=== PATIENT | female | born 1980 | race Caucasian/White ===

== ENCOUNTER 2021-03-29 17:37 | Observation (INO) | payer OTHER, SELFPAY ==
--- NOTE | ~2021-03-29 | US_ITS ---
US right upper quadrant INDICATION: Right upper quadrant pain with PROCEDURE: Realtime right upper abdominal ultrasound. COMPARISON: No prior studies for comparison. FINDINGS: The pancreas is normal without focal mass or pancreatic ductal dilation. Liver echotexture is normal without focal mass or intrahepatic biliary dilatation. There is normal directional flow i n the portal vein. The gallbladder is normal without stones, gallbladder wall thickening or pericholecystic fluid. Comm on bile duct measures 4 mm. No sonographic Levy's sign. IMPRESSION: 1: Normal limited abdominal ultrasound. Reviewed, dictated and finalized at location B.
[2021-03-29 18:00] VITALS: BP 144/87; PULSE 84
[2021-03-29 18:15] VITALS: BP 133/90; PULSE 83
[2021-03-29 18:31] VITALS: BP 127/82; PULSE 78
--- NOTE | 2021-03-29 19:09 | PM.IMHP ---
H&P: HPI History of Present Illness Date/Time: 03/29/21 18:58 Zaynab is a 40yo @ 36.3wks (NAYAN 04/23/21) who presented to L&D after being discharged from [facility]. She had severe RUQ pain; stabbing at work and was taken to [facility] as that was the closest hospital. At [facility], she was found to have a severe range BP 175/105. She has had a couple other mild range BPs. PEC labs were sent at [facility] and reviewed on her Uchart. Normal urine P/C ratio of 0.135; normal platelets, liver enzymes, creatinine, uric acid and H/H. She had a mild headache but it resolved spontaneously. She was also found to be johana, but cervix was closed. No VB, LOF, vision changes, CP, or SOB. Her is complicated by: - AMA; NIPT low risk, male - Previous c/s x1; for repeat c/s - CMV non-immune - Gestational hypertension, new diagnosis on this admission Chief Complaint: elevated blood pressure at outside hospital Review of Systems Review of Systems: All systems reviewed & are unremarkable except as noted in HPI and below (HPI) [facility] Family History Family History Mother Hypertension Grandparent Family history of cardiovascular disease Social History Social History Smoking status: Never smoker Alcohol intake: current Substance use: never Spiritual care concerns: No Meds Home Medications and Allergies Home Medications Medication Instructions Recorded Confirmed Type fluticasone propionate 50 1 spray NASAL Q12H #9.9 ml 02/24/21 03/23/21 Rx mcg/actuation nasal spray,suspension PNV cmb#95-ferrous fumarate-FA 1 tablet PO DAILY 03/23/21 03/23/21 History [] aspirin 81 mg PO DAILY 03/23/21 03/23/21 History pyridoxine (vitamin B6) 100 mg PO DAILY 03/23/21 03/23/21 History Allergies Allergy/AdvReac Type Severity Reaction Status Date / Time latex Allergy Unknown Skin Verified 02/07/21 16:50 Reaction Vital Signs Vital Signs - 24 hr 03/29/21 18:00 03/29/21 18:15 03/29/21 18:31 Pulse Rate 84 83 78 Blood Pressure 144/87 H 133/90 127/82 Exam Const: General: cooperative, healthy appearing and uncomfortable (with contractions) Resp: Effort & Inspection: normal respiratory effort Cardio: Rate: regular rate : Other: FHT's: 150's/ mod suzanne/ + accels/ no decels - cat 1 TOCO; irregular ctx's Skin: General skin exam: normal color Neuro: General: oriented to person Psych: Appearance: grossly normal Affect: normal affect Attitude: cooperative Assessment and Plan Assessment and plan (1) Right upper quadrant pain: Code(s): R10.11 - Right upper quadrant pain Status: Acute (2) Gestational hypertension affecting second : Code(s): O13.9 - Gestational [-induced] hypertension without significant proteinuria, unspecified trimester Status: Acute (3) Previous section: Code(s): Z98.891 - History of uterine scar from previous surgery Status: Acute Additional Plan - Will monitor overnight on L&D - Continuous monitoring - BP monitoring q2h - RUQ US ordered for AM - Plan for discharge home tomorrow AM after US if stable overnight - Plan for ANT with NST/BPP/repeat labs Saturday or Saturday - Plan for repeat section with Dr. Staples Saturday or Saturday if all is stable
[2021-03-29 20:00] VITALS: BP 125/85; PULSE 86
[2021-03-29] MEDS: ACETAMINOPHEN 500 MG TABLET 1000 MG PO (20:40)
[2021-03-29 20:56] LABS: Add Urine Microscopic? NO; Appearance Urine Clear (Clear); Bilirubin Urine Negative (Negative); Blood Urine Negative (Negative); Color Urine Straw (Yellow); Glucose Urine UA Negative (Negative); Ketones Urine Negative (Negative); Leukocyte Esterase Ur Negative LEU/UL (NEGATIVE); Nitrate Urine Negative (Negative); Protein Urine Negative (Negative); Specific Grav Ur 1.008 (1.001-1.035); Urobilinogen Urine Negative mg/dL (<2.0)
[2021-03-29 21:00] VITALS: BP 115/72; PULSE 90
--- NOTE | 2021-03-29 22:18 | OBADM ---
This patient, Zaynab Lea, admitted to the OB room OB Post 116 for observation. Patient/family oriented to hospital policies and general routines including ID bracelet, bed and alarms, visiting hours, pain management, procedures, bathroom and other care routines, personal items, smoking policy, room service/diet, and visiting hours. Patient/Family are encouraged to report perceived risks to care and to ask questions if they do not understand what they are told or what they should do.
[2021-03-29 22:39] VITALS: BP 104/65; PULSE 82; TEMP 36.7
[2021-03-30 00:49] VITALS: RESP 20; TEMP 36.4
[2021-03-30 00:51] VITALS: BP 113/86; PULSE 46
[2021-03-30 01:00] VITALS: BP 115/63; PULSE 80
[2021-03-30 01:15] VITALS: BP 113/86; PULSE 80
[2021-03-30 04:42] VITALS: BP 125/76; PULSE 72
--- NOTE | 2021-03-30 07:14 | PM.OBPNVD ---
OB - PN: Subj Subjective Date/time seen: 03/30/21 07:13 HD#2 Zaynab reports doing well overnight. She tolerated diet. She reports he's moving good. She had contractions that woke her up around midnight; none since. She denies CP, SOB, vomiting, VB, LOF, vision changes. She had 2 episodes of RUQ pain, less severe than yesterday. She had a mild headache. She reports nausea overnight. Her BPs overnight were normal. She reports a couple episodes of her hands itching. RUQ US is still pending. OB - PN: Obj Data Labs Labs: Laboratory Results - last 24 hr 03/29/21 20:43 Urine Color Straw Urine Appearance Clear Urine pH 6.0 Ur Specific [place] 1.008 Urine Protein Negative Urine Glucose (UA) Negative Urine Ketones Negative Ur Blood (Man) Negative Urine Nitrate Negative Urine Bilirubin Negative Urine Urobilinogen Negative Ur Leukocyte Esterase Negative OB - PN A/P Assessment and Plan (1) Previous section: Code(s): Z98.891 - History of uterine scar from previous surgery Status: Acute (2) Gestational hypertension affecting second : Code(s): O13.9 - Gestational [-induced] hypertension without significant proteinuria, unspecified trimester Status: Acute (3) Right upper quadrant pain: Code(s): R10.11 - Right upper quadrant pain Status: Acute Plan Comments: - RUQ pending - Will repeat labs this AM + bile acids - BPs normal; pt asymptomatic - plan for d/c home after US if labs/BPs normal - will be for NST/BPP/labs on Saturday - Strict return precautions discussed in detail Time Spent With Patient Time: Total time spent is greater than 50% in coordination of care (as documented) at patient's floor/unit and/or counseling patient: Review of Systems Review of Systems: All systems reviewed & are unremarkable except as noted in HPI and below (HPI) Exam Const: General: cooperative, healthy appearing, comfortable and no acute distress Resp: Effort & Inspection: normal respiratory effort Auscultation: clear to auscultation bilaterally Cardio: Rate: regular rate GI: Inspection: non-distended GI Palp: No abdominal tenderness and Yes Soft to palpation Auscultation: normal bowel sounds : Other: FHT's: 130's/ mod suzanne/ + accels/ no decels - cat 1 TOCO: irregular ctx's Back/Spine/Pelvis: Back: no CVA tenderness Skin: General skin exam: normal color Neuro: General: patient oriented x3 Extrem: General: normal to inspection Psych: Appearance: grossly normal Attitude: cooperative Thought process: Normal thought process present
[2021-03-30 08:03] VITALS: BP 124/79; PULSE 77
[2021-03-30 08:12] LABS: Basophils Percent Auto 0.2 % (0.2-1.2); Eosinophils Percent Auto 0.3 % (0-4.4); Hemoglobin 12.7 g/dL (12.0-15.0); Immature Granulocyte Absolute 0.08 K/mm3 (0.00-0.031); Immature Granulocyte Percent A 0.7 % (0-0.5); Mean Corpuscular HGB Conc 33.4 g/dl (32-36); Mean Corpuscular Hemoglobin 33.2 pg (26-34); Mean Corpuscular Volume 99.5 fl (80-100); Mean Platelet Volume 10.1 fl (7.4-10.4); Monocytes Percent Auto 8.2 % (2.6-8.5); Neutrophils Absolute Auto 8.2 K/mm3 (1.3-6.7); Neutrophils Percent Auto 67.6 % (45.5-73.1); Platelet Count Result 229 k/mm3 (150-375); Red Blood Count 3.82 M/mm3 (4.2-5.4); Red Cell Distribution Width 12.9 % (11.5-14.5); White Blood Count 12.2 K/mm3 (4.5-10.0)
[2021-03-30 08:22] LABS: Lactate Dehydrogenase 424 U/L (313-618)
[2021-03-30 08:24] LABS: Alanine Aminotransferase 22 U/L (4-35); Albumin Level 3.5 g/dL (3.5-5.1); Alkaline Phosphatase 144 U/L (38-126); Anion Gap 8 mmol/L (8-16); Aspartate Amino Transferase 26 U/L (14-36); Bilirubin,Total 0.4 mg/dL (0.2-1.3); Blood Urea Nitrogen 7 mg/dL (7-17); Carbon Dioxide 20 mmol/L (22-30); Chloride 108 mmol/L (98-107); Estimated Glomerular Filt Rate > 60; Glucose 84 mg/dL (65-110); Potassium 3.8 mmol/L (3.4-5.0); Sodium 136 mmol/L (137-145); Uric Acid 4.8 mg/dL (2.5-7.5)
[2021-03-30 09:54] LABS: Creatinine Urine 57.9 mg/dL; Total Protein Urine Random 8 mg/dL; Ur Ttl Prot Creatinine Ratio 0.14 mg/mg (0-0.20)
[2021-04-06 14:37] LABS: Chenodeoxycholic Acid <0.5 umol/L (< OR = 3.9); Cholic Acid <0.5 umol/L (< OR = 2.8); Deoxycholic Acid <0.5 umol/L (< OR = 2.3); Total Bile Acids <1.5 umol/L (< OR = 8.3)
== END 2021-03-30 10:40 | disposition home or self-care (01) ==
PROVIDERS: Admitting Provider Obstetrics & Gynecology; PCP Family Medicine; Visit Provider Obstetrics & Gynecology
DX: O26.893 Other specified pregnancy related conditions, third trimester (principal); R10.11 Right upper quadrant pain; O13.3 Gestational [pregnancy-induced] hypertension without significant proteinuria, third trimester; O09.523 Supervision of elderly multigravida, third trimester; Z3A.36 36 weeks gestation of pregnancy
CPT/HCPCS: 36415; 59025; 76705; 80053; 81003; 82542; 82570; 83615; 84156; 84550; 85025; 87086; A9270; G0378; G0379

== ENCOUNTER 2021-04-01 08:45 | Outpatient (CLI) | payer OTHER, SELFPAY ==
[2021-04-01 10:07] LABS: Basophils Percent Auto 0.3 % (0.2-1.2); Eosinophils Absolute Auto 0.1 K/mm3 (0-0.3); Eosinophils Percent Auto 0.5 % (0-4.4); Hematocrit 36.9 % (37.0-47.0); Hemoglobin 12.1 g/dL (12.0-15.0); Immature Granulocyte Absolute 0.08 K/mm3 (0.00-0.031); Immature Granulocyte Percent A 0.7 % (0-0.5); Lymphocytes Absolute Auto 2.04 K/mm3 (0.9-3.2); Lymphocytes Percent Auto 18.5 % (18.3-44.2); Mean Corpuscular HGB Conc 32.8 g/dl (32-36); Mean Corpuscular Hemoglobin 32.8 pg (26-34); Mean Platelet Volume 10.4 fl (7.4-10.4); Monocytes Absolute Auto 0.8 K/mm3 (0.1-0.6); Monocytes Percent Auto 7.2 % (2.6-8.5); Neutrophils Percent Auto 72.8 % (45.5-73.1); Platelet Count Result 219 k/mm3 (150-375); Red Blood Count 3.69 M/mm3 (4.2-5.4); Red Cell Distribution Width 12.7 % (11.5-14.5)
[2021-04-01 10:10] LABS: Alanine Aminotransferase 20 U/L (4-35); Albumin Level 3.5 g/dL (3.5-5.1); Alkaline Phosphatase 137 U/L (38-126); Anion Gap 7 mmol/L (8-16); Aspartate Amino Transferase 24 U/L (14-36); Bilirubin,Total 0.4 mg/dL (0.2-1.3); Blood Urea Nitrogen 10 mg/dL (7-17); Calcium 9.2 mg/dL (8.4-10.2); Carbon Dioxide 21 mmol/L (22-30); Chloride 107 mmol/L (98-107); Estimated Glomerular Filt Rate > 60; Glucose 85 mg/dL (65-110); Potassium 3.8 mmol/L (3.4-5.0); Sodium 135 mmol/L (137-145); Uric Acid 5.1 mg/dL (2.5-7.5)
[2021-04-03 07:23] LABS: Rapid Plasma Reagin Non-Reactive (NonReactive)
== END 2021-04-01 08:46 | disposition home or self-care (01) ==
LOC: ANHOBOP 08:54
PROVIDERS: Obstetrics & Gynecology; PCP Family Medicine; Visit Provider Obstetrics & Gynecology
DX: Z01.818 Encounter for other preprocedural examination (principal)
CPT/HCPCS: 36415; 80053; 84550; 85025; 86592; 86850; 86900; 86901

== ENCOUNTER 2021-04-01 08:45 | Outpatient (RCR) | payer OTHER, SELFPAY ==
--- NOTE | ~2021-04-01 | US_ITS ---
EXAMINATION: US OB BPP wo non-stress DATE: 04/01/2021 10:02 INDICATION: -induced hypertension, third trimester TECHNIQUE: Real-time pelvic ultrasound was performed. The interpreting radiologist was not present fo r the study. COMPARISON: None. FINDINGS: There is a single living fetus in vertex presentation. The placenta is anterior. heart rate is 132 beats per minute (bpm). Biophysical profile performed by the technologist: breathing (30 sec sustained breathing in 30 minutes): 2 out of 2 movement (3 gross body movements in 30 minutes): 2 out of 2 tone (one episode of fvtfoxp-donfcjhci-gmsjbjn limb movement): 2 out of 2 Amniotic fluid pocket (2 cm): 2 out of 2 Total score: 8 out of 8 IMPRESSION: 1. Single living fetus in vertex presentation. 2. Biophysical profile 8 out of 8. Reviewed, dictated and finalized at location A.
[2021-04-01 09:50] VITALS: BP 133/82; PULSE 91
== END 2021-06-30 23:59 | disposition home or self-care (01) ==
LOC: ANHOBOP 08:45
PROVIDERS: PCP Family Medicine; Visit Provider Obstetrics & Gynecology
DX: O16.3 Unspecified maternal hypertension, third trimester (principal); Z3A.36 36 weeks gestation of pregnancy
CPT/HCPCS: 99199; 59025; 76819

== ENCOUNTER 2021-04-03 09:13 | Inpatient (IN) | payer OTHER, SELFPAY ==
[2021-04-03] VITALS (41 sets, daily range): BP systolic 98–144; BP diastolic 48–89; PULSE 66–88; RESP 16–181; TEMP 36.2–36.7; O2SAT 91–100; BMI 33.0
--- NOTE | 2021-04-03 09:13 | LDADM ---
This patient, Zaynab Lea, was admitted to Labor/Delivery/Recovery 120 on 04/03/21 at 09:13. Plans for labor, pain management and were discussed with patient. Patient/family oriented to hospital policies and general routines including ID bracelet, bed and alarms, visiting hours, pain management, procedures, bathroom and other care routines, personal items, smoking policy, room service/diet and guest tray routines, infant security routines, and visiting hours. Patient/Family are encouraged to report perceived risks to care and to ask questions if they do not understand what they are told or what they should do. See OBIX for further documentation.
[2021-04-03] MEDS: LACTATED RINGERS 1,000 ML 125 ML IV CONT ×2 (09:47→10:42)
--- NOTE | 2021-04-03 10:22 | WPDANESEPPF ---
Anes - Initial Pre Proc Eval Procedure: Operation Date: 04/03/21 12:00 Proposed Procedures p Repeat Section wtih Bilateral Tubal Sterilization - Elijah Staples MD Date/Time: 04/03/21 10:22 Surgeon: Elijah Staples MD Pre Op Diagnosis: Section Patient Data Age: 40 Gender: F Height: 1.68 m Weight: 92.7 kg Last Vital Signs Pulse 87 04/03/21 09:34 BP 123/89 04/03/21 09:34 Allergies Allergy/AdvReac Type Severity Reaction Status Date / Time latex Allergy Unknown Skin Verified 02/07/21 16:50 Reaction Home Medications Medication Instructions Recorded Confirmed Type fluticasone propionate 50 1 spray NASAL Q12H #9.9 ml 02/24/21 03/23/21 Rx mcg/actuation nasal spray,suspension PNV cmb#95-ferrous fumarate-FA 1 tablet PO DAILY 03/23/21 04/01/21 History [] aspirin 81 mg PO DAILY 03/23/21 04/01/21 History pyridoxine (vitamin B6) 100 mg PO DAILY 03/23/21 04/01/21 History Patient hx anesthesia problems: none Family hx anesthesia problems: none Results Review: All pre-operative results and documents have been reviewed as part of the pre-operative evaluation. [facility] Surgical History Surgical History (Updated 04/03/21 @ 10:23 by John Heard MD) H/O arthroscopic knee surgery H/O cervical spine surgery History of appendectomy Family History Family History Mother Hypertension Grandparent Family history of cardiovascular disease Social History Social History Smoking status: Never smoker Alcohol intake: current Substance use: never Spiritual care concerns: No Anes - Eval Final PreProcedure Day of Procedure 04/03/21 10:22 Patient weight: overweight Heart: regular rate and rhythm Lungs: clear to auscultation Airway: Mallampati scale class 1 Neurological: alert and oriented Last oral intake: >/= 8 hours ASA classification: II Emergent: no Anesthetic plan: proceed Anesthesia type and monitoring: regional spinal and standard monitoring Results Review: All pre-operative results and documents have been reviewed as part of the pre-operative evaluation. Informed Consent: The patient's anesthetic plan and its attendant risks and benefits were discussed with the patient/family/POA. Questions were solicited and answers provided to the satisfaction of the patient/family/POA.
[2021-04-03] MEDS: ceFAZolin 2 GM/D5W 50 ML 2 GM/50 ML BAG IVPB (11:29)
--- NOTE | 2021-04-03 11:31 | P.HP_ITS ---
H&P: HPI History of Present Illness Date/Time: 04/03/21 11:31 Thirty atrial 2 para 1001 at 37 weeks gestation presents for repeat delivery. Was seen at [facility] last week with hypertensive episode and all labs were otherwise normal. She is continued on bedrest and serial labs and ultrasound BP P with normal testing. We will proceed today with repeat delivery as she is 37 weeks now. Also desires permanent sterilization which we have discussed and she states good understanding and consent has been obtained. Chief Complaint: Review of Systems Review of Systems: All systems reviewed & are unremarkable except as noted in HPI and below PMFSH Surgical History Surgical History H/O arthroscopic knee surgery H/O cervical spine surgery History of appendectomy Family History Family History Mother Hypertension Grandparent Family history of cardiovascular disease Social History Social History Smoking status: Never smoker Alcohol intake: current Substance use: never Spiritual care concerns: No Meds Home Medications and Allergies Home Medications Medication Instructions Recorded Confirmed Type fluticasone propionate 50 1 spray NASAL Q12H #9.9 ml 02/24/21 04/03/21 Rx mcg/actuation nasal spray,suspension PNV [facility]#95-ferrous fumarate-FA 1 tablet PO DAILY 03/23/21 04/03/21 History [] aspirin 81 mg PO DAILY 03/23/21 04/03/21 History pyridoxine (vitamin B6) 100 mg PO DAILY 03/23/21 04/03/21 History Allergies Allergy/AdvReac Type Severity Reaction Status Date / Time latex Allergy Unknown Skin Verified 02/07/21 16:50 Reaction Vital Signs Vital Signs - 24 hr 04/03/21 09:34 04/03/21 11:27 Temperature 36.7 C Pulse Rate 87 88 Respiratory Rate 20 Blood Pressure 123/89 130/86 Exam Const: General: cooperative and healthy appearing Resp: Effort & Inspection: normal respiratory effort Auscultation: clear to auscultation bilaterally Cardio: Rate: regular rate Rhythm: regular rhythm GI: Auscultation: normal bowel sounds : Bimanual exam- vagina & uterus: enlarged ( Fundal height 40cm heart tones 140) Assessment and Plan Assessment and plan (1) 37 weeks gestation of : Code(s): Z3A.37 - 37 weeks gestation of Status: Acute (2) induced hypertension: Code(s): O13.9 - Gestational [-induced] hypertension without significant proteinuria, unspecified trimester Status: Acute (3) Previous delivery affecting : Code(s): O34.219 - Maternal care for unspecified type scar from previous delivery Status: Acute (4) Encounter for female sterilization procedure: Code(s): Z30.2 - Encounter for sterilization Status: Acute Additional Plan proceed with repeat low transverse section and bilateral tubal ligation
--- NOTE | 2021-04-03 11:33 | WPDHPUPDATE1 ---
History and Physical Update Update Date/Time: 04/03/21 11:33 History and Physical has been reviewed, including an updated exam of the patient. There are NO changes in the patient's condition. Risks, benefits, and alternatives have been discussed and questions answered. Patient agrees to proceed with procedure.
--- NOTE | 2021-04-03 12:18 | P.PCNOB_ITS ---
OB - Delivery Note Procedure Procedure: Procedures Operation Date: 04/03/21 12:00 <No data on this case meets the specified criteria> events: Previous and Induced HTN Route of delivery: (With bilateral salpingectomy) Specimen: Yes Quantitative Blood Loss (ml): 500 Narrative: Patient prepped and draped for the procedure. Pfannenstiel incision was made carried down to the fascia which was then extended bilaterally the length of the skin incision. Superiorly and inferiorly dissected away from the rectus muscles which were then bluntly dissected peritoneum was entered without difficulty. Bladder flap was developed. Uterus scored and size bilaterally the length of lower segment with clear fluid noted. Vertex was delivered section nasal oropharynx rest of baby was delivered without difficulty. Cord clamped and cut placenta removed manually. Uterus was exteriorized cleared of membranes and clots and approximated using 0 Monocryl running interlocking manner good approximation and hemostasis noted. Bilaterally tubes ordered doubly grasped and doubly ligated with the distal segments bilaterally of removed. Uterus was returned to the abdomen and tubal stumps were noted be hemostatic. Fascia was approximated 0 Vicryl from left angle midline right of midline with good approximation hemostasis noted. Fat subcutaneous tissue was approximated 0 plain suture and kyle used to approximate the skin edges. [place] Baby Weeks of gestation at delivery: 37 gender: Male Weight (pounds): 7 Weight (ounces): 1 score one minute: 9 score five minutes: 9
[2021-04-03] MEDS: OXYTOCIN 30 UNITS/NS 500 ML 30 UNITS/500 ML BAG 125 UNITS IV CONT (13:11)
[2021-04-03] MEDS: diphenhydrAMINE HCl CAP 25 MG CAPSULE PO (14:20)
--- NOTE | 2021-04-03 14:25 | SUR.PHASEI ---
Report called to Jennifer Avilez RN. Pt going to room 290 for pp care.
--- NOTE | 2021-04-03 14:45 | PC.NURSE ---
This patient, Zaynab Lea, was received from PACU on 04/03/21 at 1445. Patient/family oriented to unit policies and routines
--- NOTE | 2021-04-03 15:00 | PC.NURSE ---
Mother called out for assist with feeding. Mother reported infant eagerly fed for first feeding and is sleepy for this feeding. is able to freely thrust tongue past gum ridge and flange both lips. Skin is intact on both nipples, no redness and bruising noted. Discussed establishing in the late infant may be more difficult due to their immaturity, infant may be less alert, have less stamina, and have greater difficulty with latch, suck, and swallow. ?s feeding may impact mother?s milk supply, pumping may need to be initiated until milk supply is well established and infant is able to effective without supplementation. Reviewed feeding cues, frequencies, duration of feedings, feeding elimination flow sheet, and signs of adequate intake. Demonstrated stimulation techniques to wake infant for feeding. Assisted with to breast. Reviewed positioning/alignment in cross cradle, holding breast in ?U? hold and guided asymmetrical latch on. Reviewed rational for each. Infant able to latch correctly within a few attempts. Infant nursed eagerly with steady draws and occasional swallowing noted, some pausing noted. Reviewed signs of a correct latch, effective nursing and suck swallow ratio. Suggested mother stimulate while feeding to increase stimulate, increase intake and to assist with maintaining deep latch. would slip to shallow latch causing tenderness. Demonstrated how to adjust latch more deeply while feeding if needed. Mother reports she can feel the difference in latch with no tenderness. Nipple care reviewed of lanolin after feedings, warm compresses as needed. Instructed mother to call out for RN assistance if she is unable to latch infant for feeding or she has discomfort with nursing. Instructed feeding should be initiated three hours from start of last feeding or if feeding cues are noted before. Mother voiced understanding of information shared.
[2021-04-03] MEDS: KETOROLAC 30 MG/ML VIAL (*BKC) IV PUSH ×2 (15:38→21:15)
[2021-04-03] MEDS: FLUTICASONE PROPIONATE 0.05% NA SPR 16 GM BTL (*BKC) 1 SPRAY NASAL (15:39)
[2021-04-03] MEDS: ONDANSETRON INJ 4 MG/2 ML VIAL IV PUSH (15:49)
[2021-04-03] MEDS: DEXTROSE 5%/0.45% SOD CHL 1,000 ML 125 ML IV CONT (16:36)
[2021-04-03] MEDS: HYDROcodone/acetaminophen (*CRX) 10-325 MG TABLET 1 TAB PO (16:37)
[2021-04-03] MEDS: DOCUSATE SODIUM 100 MG CAPSULE PO (21:12)
[2021-04-03] MEDS: SIMETHICONE 80 MG TAB.CHEW PO (21:12)
[2021-04-03] MEDS: diphenhydrAMINE HCl CAP 25 MG CAPSULE 50 MG PO (22:49)
[2021-04-04] VITALS: BP 133/80; PULSE 78; RESP 18; TEMP 36.2; O2SAT 100
[2021-04-04 04:45] VITALS: BP 131/80; PULSE 82; RESP 18; TEMP 36.2; O2SAT 100
[2021-04-04 05:51] LABS: Basophils Percent Auto 0.2 % (0.2-1.2); Eosinophils Absolute Auto 0.1 K/mm3 (0-0.3); Eosinophils Percent Auto 0.4 % (0-4.4); Hematocrit 35.6 % (37.0-47.0); Hemoglobin 11.7 g/dL (12.0-15.0); Immature Granulocyte Absolute 0.07 K/mm3 (0.00-0.031); Immature Granulocyte Percent A 0.5 % (0-0.5); Lymphocytes Absolute Auto 1.98 K/mm3 (0.9-3.2); Lymphocytes Percent Auto 14.8 % (18.3-44.2); Mean Corpuscular HGB Conc 32.9 g/dl (32-36); Mean Corpuscular Hemoglobin 32.8 pg (26-34); Mean Corpuscular Volume 99.7 fl (80-100); Mean Platelet Volume 10.5 fl (7.4-10.4); Monocytes Percent Auto 7.6 % (2.6-8.5); Neutrophils Absolute Auto 10.2 K/mm3 (1.3-6.7); Neutrophils Percent Auto 76.5 % (45.5-73.1); Platelet Count Result 209 k/mm3 (150-375); Red Blood Count 3.57 M/mm3 (4.2-5.4); Red Cell Distribution Width 12.4 % (11.5-14.5); White Blood Count 13.4 K/mm3 (4.5-10.0)
--- NOTE | 2021-04-04 07:20 | WPDANLDPN2 ---
Anes-Prog Note L&D Date/Time: 04/04/21 07:20 Comfortable throughout: section Neuraxial method: spinal Epidural/Spinal procedure site: clean & non-tender Neuro status: Neuro function grossly intact. Cardiovascular status: normal Respiratory status: normal Airway patency: baseline Mental status: baseline Post-Op hydration status: normal Vital Signs: Last Vital Signs Temp 36.2 C L 04/04/21 04:45 Pulse 82 04/04/21 04:45 Resp 18 04/04/21 04:45 BP 131/80 04/04/21 04:45 Pulse Ox 100 04/04/21 04:45 Pain score (VAS): 2/10 I/O: Intake & Output 04/03/21 04/03/21 04/04/21 15:59 23:59 07:59 Intake Total 2100 80 500 Output Total 1058 1075 Balance 1042 80 -575 Post-procedural complaints: none Patient feedback: Patient satisfied with anesthetic care.
--- NOTE | 2021-04-04 07:20 | WPDANLDNPN2 ---
Anes-Prog Note L&D-Neuraxial Date/Time: 04/04/21 07:20 Neuraxial medications: intrathecal PF morphine Opiod-related complaints: pruritis moderate, treatment effective Patient feedback: Patient satisfied with post-operative pain management.
--- NOTE | 2021-04-04 07:50 | PM.OBDSVD ---
DS: Admitting Diagnosis Discharge Date 04/05/2021 Admitting Diagnosis DS: Discharge Diagnosis Discharge Diagnosis (1) Previous delivery affecting : Code(s): O34.219 - Maternal care for unspecified type scar from previous delivery Status: Acute OB - DS: Summary OB Procedures : None OB Procedures Intrapartum: and Tubal ligation OB Procedures: : None Peripartum Data Procedures: Procedures Operation Date: 04/03/21 12:00 Actual Procedure Side Surgeon p Section Elijah Staples MD Time Spent with Patient Time attestation: Total time spent providing and/or coordinating discharge services: DS: Data Data Completed and Pending Pending studies at discharge: Pending at discharge 04/03/21 11:57 Surgical [PTH] Routine Labs on day of discharge: Labs from last 24 hours 04/04/21 04:13 WBC 13.4 H RBC 3.57 L Hgb 11.7 L Hct 35.6 L MCV 99.7 MCH 32.8 MCHC 32.9 RDW 12.4 Plt Count 209 MPV 10.5 H Immature Gran % (Auto) 0.5 Neut % (Auto) 76.5 H Lymph % (Auto) 14.8 L [place] % (Auto) 7.6 Eos % (Auto) 0.4 Baso % (Auto) 0.2 Lymph # (Auto) 1.98 [place] # (Auto) 1.0 H Eos # (Auto) 0.1 Baso # (Auto) 0.0 Abs Immat Gran (auto) 0.07 H Absolute Neuts (auto) 10.2 H Absolute Nucleated RBC 0.0 Nucleated RBC % 0.0 Discharge Plan Discharge Discharging Clinician: Elijah Staples Patient Disposition: Home, Self-Care Activity: as tolerated Diet: as tolerated Wound Care Instructions: incision open to air Discharge Instructions: office for staple removal saturday Patient Instructions: Antibiotic Form Stand Alone Forms: General Discharge Information Follow-up/Referrals: Elijah Staples MD [Physician] - 3 Weeks Discharge Medications: New hydrocodone-acetaminophen 5-325 mg Tablet 1 tablet PO Q4H Qty: 30 RF: 0 ibuprofen 600 mg Tablet 600 mg PO Q6H PRN (Reason: Cramping) Qty: 30 RF: 0 Continued PNV cmb#95-ferrous fumarate-FA [] 28 mg iron- 800 mcg Tablet 1 tablet PO DAILY RF: 0 fluticasone propionate [Flonase Allergy Relief] 50 mcg/actuation spray,suspension 1 spray NASAL Q12H Qty: 9.9 RF: 0 Discontinued pyridoxine (vitamin B6) 100 mg Tablet 100 mg PO DAILY RF: 0 aspirin 81 mg Capsule 81 mg PO DAILY RF: 0 Date of admission: 04/03/21 09:13 Primary Care Provider: Mono Vasquez Admitting Provider: Elijah Staples Attending physician on admission: Elijah Staples Condition: Stable
[2021-04-04] MEDS: MULTIVIT/MIN/PREN/FOL AC/IRON TABLET 1 TAB PO (08:25)
[2021-04-04] MEDS: DOCUSATE SODIUM 100 MG CAPSULE PO ×2 (08:25→16:08)
[2021-04-04] MEDS: IBUPROFEN 600 MG TABLET PO ×3 (08:26→21:26)
[2021-04-04] MEDS: HYDROcodone/acetaminophen (*CRX) 5-325 MG TABLET 1 TAB PO ×5 (08:27→21:27)
[2021-04-04] MEDS: FLUTICASONE PROPIONATE 0.05% NA SPR 16 GM BTL (*BKC) 1 SPRAY NASAL ×2 (10:18→21:27)
--- NOTE | 2021-04-04 11:55 | PC.NURSE ---
Mother called out for assist with feeding, reporting has been sleepy since circumcision this am. Assured mother this is normal and should resolve within a few hours and normal feeding pattern. Stimulation techniques to wake for feeding. After a few minutes feeding cues noted. Assisted with to breast. Reviewed positioning/alignment in cross cradle, holding breast in ?U? hold and guided asymmetrical latch on. Reviewed rational for each. Infant able to latch correctly within a few attempts. nursed eagerly with steady draws and frequent swallowing noted, some pausing noted. Reviewed signs of a correct latch, effective nursing and suck swallow ratio. Suggested mother stimulate while feeding to increase stimulate, increase intake and to assist with maintaining deep latch. was able to maintain latch without discomfort to mother. Instructed mother to call out for RN assistance if she is unable to latch infant for feeding or she has discomfort with nursing. Instructed feeding should be initiated three hours from start of last feeding or if feeding cues are noted before. Mother voiced understanding of information shared.
[2021-04-04 11:58] VITALS: BP 106/68; PULSE 84; RESP 16; TEMP 36.8; O2SAT 96
[2021-04-04 15:30] VITALS: BP 113/72; PULSE 79; RESP 16; O2SAT 100
[2021-04-04] MEDS: LORATADINE/PSEUDOEPHEDRINE (*CRX) 10/240 MG TABLET ER 24 HR 1 TAB PO (16:09)
[2021-04-04 20:00] VITALS: BP 149/78; PULSE 61; RESP 18; TEMP 36.2; O2SAT 97
[2021-04-04 23:30] VITALS: BP 117/70; PULSE 79; RESP 18; TEMP 36.1; O2SAT 99
[2021-04-05] MEDS: HYDROcodone/acetaminophen (*CRX) 5-325 MG TABLET 1 TAB PO ×2 (02:02→08:35)
[2021-04-05 05:00] VITALS: BP 123/83; PULSE 77; RESP 18; TEMP 35.9; O2SAT 100
[2021-04-05] MEDS: IBUPROFEN 600 MG TABLET PO ×2 (05:04→11:46)
[2021-04-05 07:45] VITALS: BP 125/78; PULSE 82; RESP 16; TEMP 37.3; O2SAT 99
[2021-04-05 08:30] VITALS: PULSE 82; RESP 16; O2SAT 99
[2021-04-05] MEDS: SIMETHICONE 80 MG TAB.CHEW PO ×2 (08:35→11:45)
[2021-04-05] MEDS: DOCUSATE SODIUM 100 MG CAPSULE PO (08:35)
[2021-04-05] MEDS: MULTIVIT/MIN/PREN/FOL AC/IRON TABLET 1 TAB PO (08:35)
--- NOTE | 2021-04-05 09:10 | PC.NURSE ---
Consult with pt., observed mother is able to independently latch with appropriate positioning/alignment. Infant eagerly latches on first attempt with long rhythmical draws and frequent swallowing noted. She denies any nipple discomfort, is feeding as required and waking infant to feed if needed. Infant has had at least 8 effective feedings in the past 24 hours, and is currently meeting outcomes for weight, output, jaundice and feeding frequencies. Mother states she feels confident to continue effective at home. Reviewed transition to breast milk, signs of adequate intake, and engorgement/relief. Instructed to call ICP if intake/output less than required. Reviewed regular medications mother is taking. Information provided per Anita. Reviewed community resources on the [facility] website and in the Mom/Baby guide. Information on outpatient services provided. Mother has no further questions at this time. Instructed feeding should be initiated three hours from start of last feeding or if feeding cues are noted before until seen by ICP. Mother voiced understanding of information shared.
[2021-04-05] MEDS: HYDROcodone/acetaminophen (*CRX) 10-325 MG TABLET 1 TAB PO (11:45)
[2021-04-06 11:20] VITALS: BP 129/85; PULSE 85; RESP 20; TEMP 36.8; O2SAT 100
--- NOTE | 2021-04-08 07:04 | PM.OBPRVD ---
OB - Delivery Note Procedure Procedure: Procedures Operation Date: 04/03/21 12:00 Actual Procedure Side Surgeon p Section Elijah Staples MD events: Previous and Induced HTN Anesthesia type: Spinal [place] Baby Weeks of gestation at delivery: 37 gender: Male Weight (pounds): 7 Weight (ounces): 1 score one minute: 9 score five minutes: 9
--- NOTE | 2021-04-08 07:05 | PM.OBDSVD ---
DS: Admitting Diagnosis Discharge Date 04/05/21 Admitting Diagnosis OB - DS: Summary OB Procedures : None OB Procedures Intrapartum: and Tubal ligation OB Procedures: : None Peripartum Data Procedures: Procedures Operation Date: 04/03/21 12:00 Actual Procedure Side Surgeon p Section Elijah Staples MD Time Spent with Patient Time attestation: Total time spent providing and/or coordinating discharge services: DS: Data Data Completed and Pending Completed studies during hospitalization: Pending at discharge 04/03/21 11:57 Surgical [PTH] Routine Discharge Plan Discharge Consulting providers: John Heard Discharging Clinician: Elijah Staples Patient Disposition: Home, Self-Care Activity: as tolerated Diet: as tolerated Wound Care Instructions: incision open to air Discharge Instructions: Education: Mom and Baby Guide Given to: Mother Follow-Up: Call the office for a time to come in on Saturday for staple removal. Bring remover and steristrips with you. Call your delivering provider's office for an appointment to be seen in: 3 weeks Mom and baby should come to the [facility] for the follow-up appointment. Appointment Date/Time: April 06, 2021 at 11:00 am What to expect at your follow-up visit: Blood Pressure Check Physical Assessment Call [phone] if you are unable to keep your appointment time. BREAST CARE: * Wear a snug supportive bra. * For engorgement discomfort: Breast Feeding: * Apply warm moist washcloths * Express milk as needed to relieve engorgement * Wear loose clothing * For sore nipples: * Identify correct latch-on * Apply warm moist washcloths before and after nursing * Air dry nipples after nursing * May apply Lansinoh cream to nipples ABDOMINAL INCISION: (if applicable) * Allow incision to air dry * Do NOT use lotions for powders on your incision * When showering, allow soap and water to run over the incision, but do not wash incision EPISIOTOMY/PERINEAL CARE: * Until bleeding stops, use your kayden bottle after urinating * Change your pad frequently throughout the day * You may take sitz baths several times a day (fill your bathtub with warm water and soak for 20 minutes.) Do NOT bathe in the water * No tub baths until seen by your physician - You may shower ACTIVITY: * Rest as much as possible. * Do not exercise or lift anything heavier than your baby (such as laundry or other children.) * Avoid stairs or driving as much as possible. * Do not put anything into the vagina. No douching, tampons, or sexual activity until seen by physician. NOTIFY PHYSICIAN IF YOU HAVE ANY QUESTIONS OR IF ANY OF THE FOLLOWING SYMPTOMS OCCUR: * If your incision becomes red, swollen, or more painful than what you have experienced in the hospital. * If your vaginal bleeding becomes foul smelling. * If your vaginal bleeding becomes more heavy than a period or if your bleeding changes from pink to bright red. However, you may pass an occasional walnut-sized clot once or twice for the first week . * If you experience a sharp, shooting pain in you calves. * If you discover a hard, reddened area on your breast or if you experience flu-like symptoms. DIET: * Eat regular, well-balanced meals. * Drink plenty of fluids daily. If , drink to thirst. Patient Instructions: (DC) Stand Alone Forms: General Discharge Information Follow-up/Referrals: Elijah Staples MD [Physician] - 3 Weeks Discharge Medications: New hydrocodone-acetaminophen 5-325 mg Tablet 1 tablet PO Q4H Qty: 30 RF: 0 ibuprofen 600 mg Tablet 600 mg PO Q6H PRN (Reason: Cramping) Qty: 30 RF: 0 Continued PNV cmb#95-ferrous fumarate-FA [] 28 mg iron- 800 mcg Tablet 1 tablet PO DAILY R
== END 2021-04-05 11:52 | disposition home or self-care (01) | DRG 785 ==
LOC: ANHLDR 13:05 → ANHOB2 15:01
PROVIDERS: Admitting Provider Obstetrics & Gynecology; PCP Family Medicine; Visit Provider Obstetrics & Gynecology
PROC: 10D00Z1 Extraction of Products of Conception, Low, Open Approach (ICD-10-PCS; CPT 59514; principal; 2021-04-03 12:00)
DX: O34.211 Maternal care for low transverse scar from previous cesarean delivery (principal); Z30.2 Encounter for sterilization; O13.4 Gestational [pregnancy-induced] hypertension without significant proteinuria, complicating childbirth; Z3A.37 37 weeks gestation of pregnancy; Z37.0 Single live birth
CPT/HCPCS: 36415; 59025; 76819; 80053; 84550; 85025; 86592; 86850; 86900; 86901; 88302; 88307; A9270; J0131; J0690; J1885; J2274; J2370; J2405; J2590; J7120

== ENCOUNTER 2022-09-18 16:43 | Emergency (ER) | payer OTHER, SELFPAY ==
--- NOTE | 2022-09-18 16:55 | ED.URI ---
HPI - URI/Sore Throat General Chief Complaint: Upper Respiratory Infection Stated Complaint: cough,congestion Time Seen by Provider: 09/18/22 16:55 Source: patient Mode of arrival: ambulatory Limitations: no limitations History of Present Illness HPI Narrative: 42-year-old female presents with complaint nasal congestion, sinus pressure, postnasal drainage, dry cough for the past 4-5 days. Afebrile. Reports that symptoms became worse after being outside over Easter weekend. Reports last night had a bad sinus headache. Taking rhik-bzi-tgypeil Mucinex DM treat her symptoms. Afebrile. Reports today at work she had rattling in her upper airways when coughing, is concerned that she may have bronchitis. Denies chest pain and shortness of breath. All systems reviewed and negative except as noted above. Related Data Home Medications Medication Instructions Recorded Confirmed pyridoxine (vitamin B6) 50 mg 25 mg PO DAILY 08/15/22 09/18/22 tablet Allergies Allergy/AdvReac Type Severity Reaction Status Date / Time latex Allergy Unknown Skin Verified 08/15/22 08:51 Reaction Review of Systems Review of Systems: CONSTITUTIONAL: Denies fever, chills, or sweats. EYES: Denies visual changes, redness, or discharge. ENT: Reports rhinorrhea, congestion, sore throat, sinus pressure, bilateral ear pressure. CARDIOVASCULAR: Denies chest pain, palpitations, or edema. RESPIRATORY: Cough cough. denies dyspnea. GASTROINTESTINAL: Denies abdominal pain, nausea, vomiting, or diarrhea. GENITOURINARY: Denies dysuria or hematuria. SKIN: Denies rash or itching. MUSCULOSKELETAL: Denies back pain, joint pain, or myalgia. NEUROLOGIC: Denies headache, numbness, or weakness. PSYCHIATRIC: Denies anxiety or depression. All other systems reviewed are negative, except as documented in HPI. 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 History of appendectomy 2009 History of 10/09/11 primary c/s--gestational hypertension, preeclampsia 04/03/21 Family History Family History Mother Hypertension Grandparent Family history of cardiovascular disease Cerebrovascular accident paternal grandmother Other Alcohol abuse maternal uncle Social History Social History Smoking status: Never smoker Alcohol intake: current Alcohol use details: social Substance use: never Substance use type: does not use Living arrangements: other Additional living arrangements comments: spouse Occupation/Education: occupation Additional occupation/education comments: admin coordinator Gender identity (if verbalized by the patient): Female Sexual Orientation (if Verbalized by the Patient): Straight or Heterosexual Spiritual care concerns: No Comments At time of signature, agree with nursing past medical, surgical, social and family history. There is no relevant family history pertinent to the presenting complaint. Exam Narrative: GENERAL: This is a well-nourished, well-developed patient, in no apparent distress. HEAD: normocephalic, atraumatic. EYES: PERRL. Sclera clear/white. Vision is grossly intact. EARS: External ears normal, auditory canals clear and without drainage, Fluid bilateral TMs. Opaque in color with all eye reflex. No erythema or perforation. NOSE: External nose normal with Clear nasal drainage, erythema tenderness, moderate congestion, no sinus tender
[2022-09-18 16:57] VITALS: BP 148/97; PULSE 82; RESP 16; TEMP 36.5; O2SAT 100
== END 2022-09-18 17:17 | disposition home or self-care (01) ==
PROVIDERS: Emergency Provider Nurse Practitioner Family; PCP Emergency Medicine
DX: J01.90 Acute sinusitis, unspecified (principal)
CPT/HCPCS: 99213; G0463

== ENCOUNTER 2023-02-28 16:56 | Outpatient (CLI) | payer OTHER, SELFPAY ==
[2023-02-28 17:41] LABS: Appearance Urine Clear (Clear); Bacteria Urine None Seen /hpf; Bilirubin Urine Negative (Negative); Blood Urine Negative (Negative); Color Urine Yellow (Yellow); Glucose Urine UA Negative (Negative); Ketones Urine Negative (Negative); Leukocyte Esterase Ur 2+ LEU/UL (Negative); Nitrate Urine Negative (Negative); Non Pathogenic Casts 0-2; Protein Urine Negative (Negative); RBC Urine 0-2 /hpf (0-2); Specific Grav Ur 1.005 (1.001-1.035); Squamous Epithelial Cell Urine None seen /hpf (Few); Urobilinogen Urine 0.2 mg/dL (<2.0); WBC Urine 21-50 /hpf
[2023-02-28 17:46] LABS: Add Urine Microscopic? YES
== END 2023-02-28 16:57 | disposition home or self-care (01) ==
LOC: ANHLAB 16:57
PROVIDERS: PCP Emergency Medicine; Visit Provider Emergency Medicine
DX: N39.0 Urinary tract infection, site not specified (principal)
CPT/HCPCS: 81001; 87077; 87086; 87088; 87186

== ENCOUNTER 2023-08-13 11:52 | Outpatient (NON) | payer OTHER, SELFPAY | END 2023-08-13 11:53 | disposition home or self-care (01) | LOC: ANHGOSHLAB 11:54 | PROVIDERS: PCP Emergency Medicine; Visit Provider Emergency Medicine | DX: R10.9 Unspecified abdominal pain (principal) | CPT/HCPCS: 87086 ==

== ENCOUNTER 2024-08-14 08:51 | Outpatient (CLI) | payer OTHER, SELFPAY ==
--- OUTSIDE RECORDS SUMMARY | 2024-08-14 09:13 | XMS_ITS | Continuity of Care Document ---
Author Organization [facility] Address [address] [place] [address] Phone Care Team Providers Care Rug Shampooer Name Role Phone Garcia OD, Moustapha Unavailable Unavailable Procedures Procedure Date Contact Lens Hydrophilic, Spherical [employer] [facility] CL Replacement - Vistakon Disp W/BW Soft [facility] No Charge Contact Lens Check No Charge Contact Lens Check No Charge Contact Lens Check Eye Exam & Treatment Refraction Visual Field Examination(s) Eye Exam, New Patient Advance Directives Directive Yes / No Effective Date File Name No Information Encounters Encounter Description Practice Location Reason(s) For Visit Diagnoses Date Provider Providers Copied on Encounter [facility], [address] [place] [address] [address], [place], [place], [id number], tel:[phone] [facility] No Information Aug- 6-201 0 Garcia OD Moustapha. [address] , [address], [place], [address], [place]. tel:[phone] [facility], [address], [place], [place], [address], tel:[phone] [facility] No Information 2-200 9 Garcia OD Moustapha. [address] , [address], [place], [address], [place]. tel:[phone] Referring Provider: Moustapha Garcia OD A, [address], [place], [address]. tel:[phone] [facility], [address], [place], [place], [address], [place] tel:[phone] [facility] No Information Gunnar-1 8-200 9 Garcia OD Moustapha. [address], [place], [place], [facility], [place]. tel:[phone] [facility], [address], [place], [place], [address], [place] tel:[phone] [facility] No Information Apr-2 3-200 9 Garcia OD Moustapha. [address] , [address], [place], [place], [facility], [place]. tel:[phone] [facility], [address], [place], [place], [address], [place] tel:[phone] [facility] No Information Apr-1 6-200 9 Garcia OD Moustapha. [address], [place], [place], [facility], [place]. tel:[phone] [facility], [address], [place], [place], [address], [place] tel:[phone] [facility] No Information Apr-1 0-200 9 Garcia OD Moustapha. [address] , [address], [place], [address], [place]. tel:[phone] [facility], [address], [place], [place], [address], [place] tel:[phone] [facility] No Information Nov-0 6-200 7 Wankum Kamaljit. [address], [place], [place], [address], [place]. tel:[phone] Referring Provider: Kamaljit Ly, [address] [facility] [address], [place], [address] . tel:[phone] [facility], [address], [place], [place], [address], [place] tel:[phone] [facility] No Information 2200 7 Sheryl Mari. [address], [facility] A, [place], [place], [address], [place]. tel:[phone] Family History Family Member Type Diagnosis Age At Onset No Information Payers Payer name Insurance type Covered democrat ID Authoriza tion(s) No Information Social History Type Description Quantity Date Captured Comments Sex Female Smoking Status No Information Chief Complaint And Reason For Visit No Information Reason For Referral Reason For Referral No Information History Of Present Illness Encounter Date Complaint History Of Prese nt Illness No Information Functional Status Date Functional Assessmen t No Information Instructions Date Instruction Additional Infor mation No Information Assessments Type Assessment Date No Information Patient Care Teams Name Effective Dates (start - stop) Status Members No Information
--- OUTSIDE RECORDS SUMMARY | 2024-08-14 09:13 | XMS_ITS | Clinical Summary ---
Author Organization [facility] Address [address] [address] Care Team Providers Care Tile Trimmer Name Role Phone Elijah Staples MD Unavailable [phone] Nahs Berry MD Primary Care Provider [phone] Allergies Active Allergy Reactions Criticality Noted Date Comments Latex Itching,Rash Medium Medications levonorgestrel & ethinyl estradiol (AMETHIA) 0.15 mg-30 mcg tablets,dose pack,3 month daily Active armodafiniL (NUVIGIL) 250 mg tablet 2 Active triamcinolone (KENALOG) 0.1 % creamIndication s:skin rash Apply topically 2 (two) times a day as needed for rash On chest. Do not use more then 2 weeks on chest rash. 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 Right upper quadrant abdominal pain 09/01/2012 Immunizations Immunization Administration Dates Next Due DTaP 5 Pertussis 02/08/2021 Influenza, Trivalent, Cell C ulture-based MDCK, Preservative Free, Antibiotic Free, Intramuscular 03/12/2024 Influenza, Trivalent, Preservative Free, Intramu scular 03/10/2013 Influenza, Unspecified 03/20/2021 Surgical History Surgery Date Site/Laterality Comments [place] LAPAROSCOPIC APPENDECTOMY Laparoscopic Appendectomy - (Added by TW Conv) [place] ARTHROTOMY W/MENISCUS REP AIR KNEE Arthrotomy Of Knee With Open Meniscus Repair - (Added by TW Conv) ABDOMINAL SURGERY SECTION KNEE SURGERY NECK SURGERY Medical History Medical History Date Comments History of urinary tract infection Urinary Tract Infection - (Added by TW Conv) Benign neoplasm of meninges (HCC) Meningioma - (Added by TW Conv) Right upper quadrant abdominal pain 09/01/2012 Knee pain 07/08/2014 Meningioma (HCC) 06/25/2013 Spinal meningioma (HCC) 07/30/2013 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 Never 03/29/2021 Average Number of Drinks Not on file 021 Q3: How often do you have si x or more drinks on one occasion? 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 Gender Identity Not on file Sexual Orientation Not on file Obstetrics History Para Term AB IAB SAB Ectopic Multiple Livin g Live Births 2 1 1 1 1 Date Outcome GA Total Labor Labor/2nd/3rd Weight Sex Type Anes PTL Shoshana A1 A5 Name Clin 012 Term 3.742 kg (8 lb 4 oz) M CS-LT ranv Epidur al N Livin g Delivery Location:[facility] Last Filed Vital Signs Vital Sign Reading Time Taken Comments Blood Pressure 125/86 03/29/2021 4:00 PM CDT Pulse 87 03/29/2021 4:00 PM CDT Temperature 36.5 C (97.7 F) 03/29/2021 2:10 PM CDT Respiratory Rate 18 03/29/2021 2:35 PM CDT Oxygen Saturation 97% 03/29/2021 3:45 PM CDT Inhaled Oxygen Concentration - - Weight 92.5 kg (204 lb) 03/07/2021 1:25 PM CDT Height 167.6 cm (5' 6 ) 03/07/2021 1:25 PM CDT Body Mass Index 32.93 03/07/2021 1:25 PM CDT Plan of Treatment Health Maintenance Due Date Last Done Comments Cervical Cancer Screening 1982 Depression Screening 1982 Hepatitis C Screening 1982 Varicella Vaccines (1 of 2 - 13+ 2-dose series) 08/23/1995 Hepatitis B Screening 2000 Regular Well Visit/Exam 18-64 2000 Covid-19 Vaccine (3 - 2023-2 5 season) 2024 07/13/2020, 06/24/2020 Breast Cancer Screening-Mammogram 09/22/2024 09/23/2023, 08/21/2022 DTaP/Tdap/Td Vaccine (3 - Td or Tdap) 02/08/2031 02/08/2021, 05/26/2020 Influenza Vaccine Completed 03/12/2024, 03/20/2021, 03/10/2013 HPV Vaccines Aged Out No longer eligi ble based on patient's age to complete this topic Pneumococcal vaccine <65 Aged Out No longer eligible based on patient's age to complete this topic Procedures Procedure Name Priority Date/Time Associated Diagnosis Comments SCREENING MAMMOGRAM BILATERAL W EFRAIN Schedule Routine, Read Routine (OP Routine) 09/23/2023 2:45 PM CDT Screening mammogram, encounter for from Last 3 Months or Most Recently Relevant to Health Maintenance Results * Screening Mammogram Bilateral W Efrain (09/23/2023 2:45 PM CDT) Anatomical Region Laterality Modality Breast Bilateral Mammography Narrative 09/25/2023 3:54 PM CDT Mammogram Technique: Bilateral Digital Breast Tomosynthesis, Bilateral C-view 2D Screening mammogram. Views obtained: bilateral craniocaudal and bilateral mediolateral oblique. Computer Aided Detection was performed. Mammogram Findings: The present examination has been compared to a prior imaging study performed at [facility] on 08/21/2022. The breasts are extremely dense, which lowers the sensitivity of mammography. There is no suspicious abnormality in either breast. Impression: There is no mammographic evidence of malignancy. Annual screening mammography is recommended. Consider breast MRI for supplemental screening given the patient's extremely dense breast tissue. OVERALL FINAL ASSESSMENT: BI-RADS CATEGORY 1: Negative. Procedure Note Jeanette Navarrete MD - 09/25/2023 Mammogram Technique: Bilateral Digital Breast Tomosynthesis, Bilateral C-view 2D Screening mammogram. Views obtained: bilateral craniocaudal and bilateral mediolateral oblique. Computer Aided Detection was performed. Mammogram Findings: The present examination has been compared to a prior imaging study performed at [facility] on 08/21/2022. The breasts are extremely dense, which lowers the sensitivity of mammography. There is no suspicious abnormality in either breast. Impression: There is no mammographic evidence of malignancy. Annual screening mammography is recommended. Consider breast MRI for supplemental screening given the patient's extremely dense breasttissue. OVERALL FINAL ASSESSMENT: BI-RADS CATEGORY 1: Negative. us Self Screening Mammogram IMG MAMMO PROCEDURES Fi nal Result from Last 3 Months or Most Recently Relevant to Health Maintenance Insurance [employer] [employer] Care Teams Tile Trimmer Relationship Specialty Start Date End Date Nash Berry MD [facility] [place] [address] PCP - General Family Medicine 04/27/24 Elijah Staples MD [address] [place] [address] Wood Milling Machine Operator Obstetrics and Gynecology 03/07/21
--- OUTSIDE RECORDS SUMMARY | 2024-08-14 09:13 | XMS_ITS | Referral Summary ---
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 The breasts are extremely dense, [...] to a prior imaging study performed at [facility] on 08/21/2022. The breasts are extremely dense, [...] Most Recently Relevant to Health Maintenance Insurance [employer] [facility] [employer] [facility] Address: [facility] [address] [place] [address] [facility] [employer] [facility] HMO/PPO Address: [facility] [address] [place] [address] [facility] [employer] [facility] H[employer]/PPO Address: [address] [address] Care Teams Mud Analysis Supervisor Relationship Specialty Start Date End Date Nash Berry MD [address] [place] [address] [place] [address] PCP - General Family Medicine 04/27/24 Elijah Staples MD [address] [place] [address] Geophysical Prospector Obstetrics and Gynecology 03/07/21
--- OUTSIDE RECORDS SUMMARY | 2024-08-14 09:14 | XMS_ITS | Clinical Summary ---
Author Organization [facility] Address [facility] [place] [address] Care Team Providers Care Sander Machine Name Role Phone Unavailable Primary Care Provider Unavailabl e Social History Tobacco Use Types Packs/Day Years Used Date Smoking Tobacco: Never Assessed Comments Unknown Sex and Gender Information Value Date Recorded Sex Assigned at Not on file Legal Sex Female 7:52 PM CDT Gender Identity Not on file Sexual Orientation Not on file Plan of Treatment Health Maintenance Due Date Last Done Comments Cervical Cancer Screening Pa p Smear (Age 30 to 64) Every 3 Years 1982 Annual Physical 1985 Hepatitis C 2000 DTaP, Tdap and Td Vaccines ( 1 - Tdap) 2001 Hepatitis B Vaccines (1 of 3 - 19+ 3-dose series) 2001 Cervical Cancer Screening Pa p with HPV Testing (Age 30 to 64) Every 5 Years 2012 Cervical Cancer Screening with HPV 2012 Mammogram Screening 2022 COVID-19 Vaccine (2023-2 5 season) 2024 Influenza Adult (#1) 2024 HPV Vaccines Aged Out No longer eligi ble based on patient's age to complete this topic Meningococcal B Vaccine Aged Out No l onger eligible based on patient's age to complete this topic Meningococcal Vaccine Aged Out No odessa preethi eligible based on patient's age to complete this topic Pneumococcal Vaccine: Pediat rics (0 to 5 Years) and At-Risk Patients (6 to 64 Years) Aged Out No longer eligible b ased on patient's age to complete this topic RSV Immunizations Under 20 Months Aged Out No longer eligible based on patient's age to complete this topic
[2024-08-14 14:23] LABS: Alanine Aminotransferase 39 U/L (6-35); Albumin Level 4.5 g/dL (3.5-5.1); Alkaline Phosphatase 49 U/L (38-126); Anion Gap 10 mmol/L (4-12); Aspartate Amino Transferase 63 U/L (14-36); Bilirubin,Total 0.6 mg/dL (0.2-1.3); Blood Urea Nitrogen 16 mg/dL (7-17); Calcium 9.2 mg/dL (8.4-10.2); Carbon Dioxide 27 mmol/L (22-30); Chloride 103 mmol/L (98-107); Cholesterol 212 mg/dL (0-200); Estimated Glomerular Filt Rate > 60; Glucose 89 mg/dL (65-110); HDL Direct 73 mg/dL; Potassium 3.9 mmol/L (3.4-5.0); Sodium 140 mmol/L (137-145); Triglycerides 127 mg/dL (<150)
[2024-08-14 14:35] LABS: LDL Cholesterol Direct 101 mg/dL
== END 2024-08-14 08:52 | disposition home or self-care (01) ==
PROVIDERS: PCP Nurse Practitioner Family; Visit Provider Student in an Organized Health Care Education/Training Program
DX: I10 Essential (primary) hypertension (principal); Z13.29 Encounter for screening for other suspected endocrine disorder; Z13.220 Encounter for screening for lipoid disorders
CPT/HCPCS: 36415; 80053; 80061; 84443

== ENCOUNTER 2025-03-01 10:02 | Outpatient (CLI) | payer OTHER, SELFPAY ==
--- NOTE | ~2025-03-01 | XR_ITS ---
EXAMINATION: XR hip LT 2V w AP pelvis, 03/01/2025 10:24 CDT HISTORY: Pain in left hip, x 2 months, skiing injury, radiates down COMPARISON: No comparisons available. Findings: No acute fracture or malalignment. No significant degenerative changes. Soft tissues unremarkable. Impression: No acute fracture or malalignment. Reviewed, dictated and finalized at location A. Impression: No acute fracture or malalignment.
== END 2025-03-01 10:03 | disposition home or self-care (01) ==
LOC: GOSHIMG 10:02
PROVIDERS: PCP Nurse Practitioner Family; Visit Provider Nurse Practitioner Family
DX: M25.552 Pain in left hip (principal)
CPT/HCPCS: 73502